=== PATIENT | male | born 1980 | race Caucasian/White ===

== ENCOUNTER 2017-02-20 23:20 | Emergency (ER) | payer OTHER ==
[2017-02-21 00:43] VITALS: BP 130/78
== END 2017-02-21 00:37 | disposition home or self-care (01) ==
LOC: ED 23:20
DX: S09.90XA Unspecified injury of head, initial encounter (principal); W18.39XA Other fall on same level, initial encounter; Y93.61 Activity, american tackle football; Y99.8 Other external cause status; Y92.89 Other specified places as the place of occurrence of the external cause